=== PATIENT | male | born 1995 | race Caucasian/White ===

== ENCOUNTER 2022-07-28 18:17 | Emergency (ER) | payer MEDICARE, OTHER ==
[~2022-07-28] VITALS: Ht 170.2 cm; Wt 59.1 kg
[2022-07-28] MEDS ORDERED: DiphenhydrAMINE HCL 50 MG/ML VIAL IVP ONE (21:00)
[2022-07-28] MEDS ORDERED: SODIUM CHLORIDE 0.9% 1,000 ML IV ONE (21:00)
[2022-07-28] MEDS ORDERED: METOCLOPRAMIDE HCL 5 MG/ML 2 ML VIAL IVP ONE (21:00)
[2022-07-28 21:09] LABS: BASOPHILS % (AUTO) 0.8 % (0.0-2.0); EOSINOPHILS % (AUTO) 4.4 % (1.0-6.0); HEMATOCRIT 44.2 % (41-53); HEMOGLOBIN 14.8 g/dL (13.5-17.5); LYMPHOCYTES % (AUTO) 31.6 % (22.0-44.0); MEAN CORPUSCULAR HEMOGLOBIN 31.1 pg (26.0-34.0); MEAN CORPUSCULAR HGB CONC 33.4 G/dL (31.0-37.0); MEAN CORPUSCULAR VOLUME 93 fL (80-100); MONOCYTES # (AUTO) 0.7 K/uL (0.1-1.0); MONOCYTES % (AUTO) 7.3 % (2.0-9.0); NEUTROPHILS # (AUTO) 5.2 K/uL (1.8-7.7); NEUTROPHILS % (AUTO) 55.9 % (40.0-70.0); PLATELET COUNT (AUTO) 307 K/uL (150-450); RED BLOOD CELL COUNT(AUTO) 4.75 MIL/uL (4.50-5.90); RED CELL DISTRIBUTION WIDTH 13.1 % (11.5-14.5)
[2022-07-28 21:24] LABS: ANION GAP 9 mmol/L (8-16); CALCIUM, TOTAL 9.3 mg/dL (8.8-10.5); CARBON DIOXIDE 29 mmol/L (22-29); CHLORIDE 100 mmol/L (98-107); CREATININE 0.78 mg/dL (0.60-1.30); GLOMERULAR FILTR. RATE CALC > 60 mL/min (>60); GLUCOSE,RANDOM 99 mg/dL (70-110); POTASSIUM 4.6 mmol/L (3.5-5.1); SODIUM SERUM 138 mmol/L (136-145); UREA NITROGEN, BLOOD 8 mg/dL (7-18)
[2022-07-28 21:30] LABS: ALANINE AMINOTRANSFERASE 64 U/L (12-78); ALBUMIN 4.8 g/dL (3.4-5.0); ALKALINE PHOSPHATASE 61 U/L (46-116); BILIRUBIN,TOTAL 0.8 mg/dL (0.1-1.0); TOTAL PROTEIN, SERUM 8.7 g/dL (6.4-8.2)
[2022-07-28 21:35] LABS: PROTHROMBIN TIME 10.8 SEC (9.4-11.6)
[2022-07-28 21:51] LABS: ASPARTATE AMINOTRANSFERASE 47 U/L (15-37)
[2022-07-28 22:45] LABS: ERYTHROCYTE SEDIMENTATION RATE 4 MM/HR (0-15)
[2022-07-28] MEDS ORDERED: KETOROLAC TROMETHAMINE 30 MG/ML VIAL IVP ONE (23:00)
[2022-07-28 23:30] VITALS: BP 126/72
== END 2022-07-28 23:50 | disposition home or self-care (01) ==
LOC: EMS 18:20
DX: R51.9 Headache, unspecified (principal)
CPT/HCPCS: 99285; 96374; 70450; 96375; 96361; 80053; 83690; 85025; 85610; 85651; 36415; J1200; J1885; J2765; J7030

== ENCOUNTER 2023-11-26 20:51 | Inpatient (IN) | payer MEDICAID, OTHER ==
[~2023-11-26] VITALS: Ht 167.6 cm; Wt 62.6 kg
[~2023-11-26 20:51] MED LIST: SERT-162 PO
[2023-11-26 21:20] VITALS: O2SAT 100
[2023-11-26 21:34] LABS: BASOPHILS % (AUTO) 1.1 % (0.0-2.0); EOSINOPHILS % (AUTO) 4.5 % (1.0-6.0); HEMOGLOBIN 14.6 g/dL (13.5-17.5); LYMPHOCYTES # (AUTO) 2.6 K/uL (1.0-4.8); LYMPHOCYTES % (AUTO) 34.1 % (22.0-44.0); MEAN CORPUSCULAR HEMOGLOBIN 30.8 pg (26.0-34.0); MEAN CORPUSCULAR VOLUME 91 fL (80-100); MONOCYTES # (AUTO) 0.6 K/uL (0.1-1.0); MONOCYTES % (AUTO) 8.7 % (2.0-9.0); NEUTROPHILS # (AUTO) 3.9 K/uL (1.8-7.7); NEUTROPHILS % (AUTO) 51.6 % (40.0-70.0); PLATELET COUNT (AUTO) 364 K/uL (150-450); RED BLOOD CELL COUNT(AUTO) 4.74 MIL/uL (4.50-5.90); RED CELL DISTRIBUTION WIDTH 13.2 % (11.5-14.5); WHITE BLOOD COUNT (AUTO) 7.5 K/uL (4.5-11.0)
[2023-11-26 21:43] LABS: ALCOHOL, BLOOD (SERUM) < 3 mg/dL (0-10)
[2023-11-26 22:10] LABS: ANION GAP 6 mmol/L (8-16); CALCIUM, TOTAL 8.8 mg/dL (8.8-10.5); CARBON DIOXIDE 31 mmol/L (22-29); CHLORIDE 104 mmol/L (98-107); GLOMERULAR FILTR. RATE CALC > 60 mL/min (>60); GLUCOSE,RANDOM 106 mg/dL (70-110); POTASSIUM 4.4 mmol/L (3.5-5.1); SODIUM SERUM 141 mmol/L (136-145); UREA NITROGEN, BLOOD 13 mg/dL (7-18)
[2023-11-26] MEDS ORDERED: QUEtiapine FUMARATE 100 MG TABLET PO PRN (23:45)
[2023-11-26] MEDS ORDERED: ZOLPIDEM TARTRATE 10 MG TABLET PO PRN (23:45)
[2023-11-26 23:59] LABS: COVID AG,FIA SOURCE NASAL SWAB
[2023-11-27] MEDS: LORazepam 2 MG TABLET PO ONE (00:14)
[2023-11-27 00:15] LABS: ALCOHOL, URINE DRUG SCREEN NEGATIVE (NEGATIVE); AMPHET/METH SCREEN,URINE POSITIVE (NEGATIVE); BARBITURATE SCREEN, URINE NEGATIVE (NEGATIVE); BENZODIAZEPINES SCREEN,URINE NEGATIVE (NEGATIVE); CANNABINOID SCREEN,URINE NEGATIVE (NEGATIVE); COCAINE SCREEN,URINE NEGATIVE (NEGATIVE); METHADONE SCREEN, URINE NEGATIVE (NEGATIVE); OPIATE SCREEN,URINE NEGATIVE (NEGATIVE); PHENCYCLIDINE SCREEN,URINE NEGATIVE (NEGATIVE)
[2023-11-27 00:18] LABS: APPEARANCE,URINE CLEAR (CLEAR); BILIRUBIN,URINE NEGATIVE (NEGATIVE); COLOR,URINE YELLOW (YELLOW); GLUCOSE, URINE (UA) NEGATIVE (NEGATIVE); KETONES,URINE NEGATIVE (NEGATIVE); LEUKOCYTE ESTERASE ,URINE NEGATIVE (NEGATIVE); NITRATE,URINE NEGATIVE (NEGATIVE); OCCULT BLOOD,URINE NEGATIVE (NEGATIVE); PROTEIN,URINE TRACE mg/dL (NEGATIVE); SPECIFIC GRAVITIY, URINE 1.029 (1.003-1.030); UROBILINOGEN,URINE <=1.0 mg/dL (<=1.0)
[2023-11-27] MEDS: ACETAMINOPHEN 500 MG TABLET PO ONE (00:23)
[2023-11-27 00:24] LABS: SARS-COV2 (COVID) ANTIGEN,FIA Negative (Negative)
[2023-11-27 02:50] VITALS: BP 105/86; PULSE 77; RESP 17; TEMP 97.8; O2SAT 100
[2023-11-27 09:16] VITALS: BP 115/64; PULSE 70; RESP 16; TEMP 98.2; O2SAT 98
[2023-11-27] MEDS ORDERED: HydrOXYzine PAMOATE 50 MG CAPSULE PO PRN (10:30)
[2023-11-27] MEDS ORDERED: TUBERCULIN, PURIFIED PROTEIN DERIVATIVE 5 TU/0.1 ML SYRINGE ID ONE (10:30)
[2023-11-27] MEDS ORDERED: LOPERAMIDE HCL 2 MG CAPSULE PO PRN ×2 (10:30)
[2023-11-27] MEDS ORDERED: MAGNESIUM HYDROXIDE SUSPENSION 30 ML UDCUP PO PRN (10:30)
[2023-11-27] MEDS ORDERED: GuaiFENesin/D-METHORPHAN [SUGAR-FREE] 200-20MG/10 ML SYRUP UDCUP PO PRN (10:30)
[2023-11-27] MEDS ORDERED: MAG HYDROX/ALUMINUM HYD/SIMETH ES 30 ML SUSPENSION UDCUP PO PRN (10:30)
[2023-11-27] MEDS: THIAMINE 100 MG TABLET PO SCH (17:43)
[2023-11-27] MEDS: MELATONIN 5 MG TABLET PO SCH (21:05)
[2023-11-27 21:06] VITALS: RESP 18
[2023-11-28 08:32] LABS: HEMOGLOBIN A1C 5.2 % (3.8-5.6)
[2023-11-28 09:41] LABS: CHOL/HDL RATIO 2.3 (4.2-7.3); FREE T4 (FREE THYROXINE) 0.85 ng/dL (0.76-1.46); THYROID STIMULATING HORMONE 0.52 uIU/mL (0.36-3.74)
[2023-11-28 09:44] VITALS: BP 92/64; PULSE 64; RESP 19; TEMP 97.6
[2023-11-28] MEDS: MULTIVITAMINS WITH MINERALS, THERAPEUTIC TABLET PO SCH (09:44)
[2023-11-28] MEDS: ACETAMINOPHEN 325 MG TABLET PO PRN (09:44)
[2023-11-28] MEDS: OMEGA-3/DHA/EPA/FISH OIL 1,000 MG CAPSULE PO SCH (09:44)
[2023-11-28] MEDS: FOLIC ACID 1 MG TABLET PO SCH (09:44)
[2023-11-28 09:47] VITALS: BP 88/51; PULSE 60; RESP 18; TEMP 98.4; O2SAT 100
[2023-11-28] MEDS: LORazepam 2 MG TABLET PO PRN (09:57)
[2023-11-28 10:44] VITALS: BP 94/68; PULSE 68; RESP 18; TEMP 97.4
[2023-11-28] MEDS: BuPROPion HCL XL 150 MG ER TABLET PO SCH (10:45)
[2023-11-28] MEDS: NALTREXONE HCL 50 MG TABLET PO SCH (10:45)
[2023-11-28] MEDS: PROMETHAZINE HCL 25 MG TABLET PO PRN (14:17)
[2023-11-28] MEDS ORDERED: NALT50TA33 PO (16:53)
[2023-11-28] MEDS ORDERED: BUPR-514 PO (16:53)
[2023-11-28] MEDS ORDERED: MELA5TAB40 PO (16:53)
[2023-11-28] MEDS ORDERED: OMEG-135 PO (16:53)
[2023-11-28 21:12] VITALS: BP 116/66; PULSE 77; RESP 18; TEMP 98.5; O2SAT 1
[2023-11-29] MEDS: BuPROPion HCL XL 150 MG ER TABLET PO SCH (08:52)
[2023-11-29 10:47] VITALS: BP 104/59; PULSE 64; RESP 18; TEMP 98.4; O2SAT 99
== END 2023-11-29 14:45 | disposition home or self-care (01) | DRG 750 ==
LOC: EMS 20:51 → EDH 11-27 01:43 → UNDOADMIN 11-27 01:43 → 3EI 11-27 02:46
PROVIDERS: ADMIT Psychiatry & Neurology Psychiatry; ATTEND Psychiatry & Neurology Psychiatry
PROC: GZHZZZZ Group Psychotherapy (ICD-10-PCS; principal; 2023-11-28)
PROC: GZ58ZZZ Individual Psychotherapy, Cognitive-Behavioral (ICD-10-PCS; 2023-11-28)
DX: F25.9 Schizoaffective disorder, unspecified (principal); R45.851 Suicidal ideations; F33.2 Major depressive disorder, recurrent severe without psychotic features; F15.90 Other stimulant use, unspecified, uncomplicated; Z20.822 Contact with and (suspected) exposure to COVID-19; F17.200 Nicotine dependence, unspecified, uncomplicated; J45.909 Unspecified asthma, uncomplicated; Z81.8 Family history of other mental and behavioral disorders; Z59.00 Homelessness unspecified
CPT/HCPCS: 80048; 80061; 80307; 81003; 83036; 84439; 84443; 85025; 86592; 99285; G0480

== ENCOUNTER 2024-12-11 07:44 | Inpatient (IN) | payer MEDICAID, OTHER ==
[~2024-12-11] VITALS: Ht 172.7 cm; Wt 71.1 kg
[~2024-12-11 07:44] MED LIST changes: +BUPR-49 PO; +MELA5TAB40 PO; +OMEG100033 PO; -SERT-162 PO; +TRAZ-252 PO
[2024-12-11 08:22] LABS: COVID AG,FIA SOURCE NPH
[2024-12-11 08:38] LABS: PLATELET COUNT (AUTO) 320 K/uL (150-450); RED BLOOD CELL COUNT(AUTO) 4.78 MIL/uL (4.50-5.90); RED CELL DISTRIBUTION WIDTH 13.8 % (11.5-14.5); WHITE BLOOD COUNT (AUTO) 11.8 K/uL (4.5-11.0)
[2024-12-11 08:45] LABS: CALCIUM, TOTAL 8.5 mg/dL (8.8-10.5); CREATININE 1.00 mg/dL (0.60-1.30); GLOMERULAR FILTR. RATE CALC > 60 mL/min (>60); GLUCOSE,RANDOM 104 mg/dL (70-110); SODIUM SERUM 141 mmol/L (136-145); UREA NITROGEN, BLOOD 14 mg/dL (7-18)
[2024-12-11 08:51] LABS: ALCOHOL, BLOOD (SERUM) < 3 mg/dL (0-10)
[2024-12-11 08:53] LABS: TROPONIN I-HIGH SENSITIVITY 7 ng/L (<76)
[2024-12-11 08:55] LABS: SARS-COV2 (COVID) ANTIGEN,FIA Negative (Negative)
[2024-12-11] MEDS: SODIUM CHLORIDE 0.9% 1,000 ML IV ONE (08:56)
[2024-12-11 08:58] LABS: ASPARTATE AMINOTRANSFERASE 20 U/L (15-37); TOTAL PROTEIN, SERUM 7.4 g/dL (6.4-8.2)
[2024-12-11] MEDS ORDERED: ZOLPIDEM TARTRATE 10 MG TABLET PO PRN (10:15)
[2024-12-11 10:27] VITALS: O2SAT 99
[2024-12-11 14:15] VITALS: BP 131/87; PULSE 87; RESP 18; TEMP 97.4; O2SAT 99
[2024-12-11] MEDS ORDERED: NICOTINE POLACRILEX 2 MG LOZENGE PO PRN (17:00)
[2024-12-11 20:43] VITALS: RESP 16
[2024-12-12 08:05] VITALS: BP 129/86; PULSE 90; RESP 19; TEMP 97.7; O2SAT 96
[2024-12-12] MEDS ORDERED: ONDANSETRON 4 MG TABLET PO PRN (10:45)
[2024-12-12] MEDS ORDERED: ACETAMINOPHEN 325 MG TABLET PO PRN (10:45)
[2024-12-12] MEDS ORDERED: GuaiFENesin/D-METHORPHAN [SUGAR-FREE] 200-20MG/10 ML SYRUP UDCUP PO PRN (10:45)
[2024-12-12] MEDS ORDERED: IBUPROFEN 400 MG TABLET PO PRN (10:45)
[2024-12-12] MEDS ORDERED: PETROLATUM,WHITE 28 GM JELLY TP PRN (10:45)
[2024-12-12] MEDS ORDERED: ALBUTEROL SULFATE HFA 90 MCG/PUFF 8 GM INHALER IH PRN (10:45)
[2024-12-12] MEDS ORDERED: MAG HYDROX/ALUMINUM HYD/SIMETH ES 30 ML SUSPENSION UDCUP PO PRN (10:45)
[2024-12-12] MEDS ORDERED: NICOTINE 14 MG/24 HOUR PATCH TD PRN (10:45)
[2024-12-12] MEDS ORDERED: DOCUSATE SODIUM 100 MG CAPSULE PO PRN (10:45)
[2024-12-12] MEDS ORDERED: MAGNESIUM HYDROXIDE SUSPENSION 30 ML UDCUP PO PRN (10:45)
[2024-12-12] MEDS ORDERED: LOPERAMIDE HCL 2 MG CAPSULE PO PRN (10:45)
[2024-12-12 20:07] VITALS: BP 138/87; PULSE 73; RESP 17; TEMP 97.6; O2SAT 98
[2024-12-12] MEDS: MELATONIN 5 MG TABLET PO SCH (20:26)
[2024-12-12] MEDS: PRAZOSIN HCL 1 MG CAPSULE PO SCH (20:26)
[2024-12-13] MEDS: BuPROPion HCL XL 150 MG ER TABLET PO SCH (08:12)
[2024-12-13] MEDS: OMEGA-3/DHA/EPA/FISH OIL 1,000 MG CAPSULE PO SCH (08:12)
[2024-12-13 08:24] VITALS: BP 123/82; PULSE 84; RESP 18; TEMP 97.7; O2SAT 99
[2024-12-13 09:26] LABS: APPEARANCE,URINE CLEAR (CLEAR); GLUCOSE, URINE (UA) NEGATIVE (NEGATIVE); LEUKOCYTE ESTERASE ,URINE NEGATIVE (NEGATIVE); NITRATE,URINE NEGATIVE (NEGATIVE); OCCULT BLOOD,URINE NEGATIVE (NEGATIVE); PH,URINE DRUG SCREEN 7.0 (5.0-8.0); SPECIFIC GRAVITIY, URINE 1.019 (1.003-1.030)
[2024-12-13 09:42] LABS: ALCOHOL, URINE DRUG SCREEN NEGATIVE (NEGATIVE); AMPHET/METH SCREEN,URINE POSITIVE (NEGATIVE); BARBITURATE SCREEN, URINE NEGATIVE (NEGATIVE); CANNABINOID SCREEN,URINE POSITIVE (NEGATIVE); COCAINE SCREEN,URINE NEGATIVE (NEGATIVE); METHADONE SCREEN, URINE NEGATIVE (NEGATIVE)
[2024-12-13 20:00] VITALS: BP 119/82; PULSE 68; RESP 17; TEMP 97.7; O2SAT 98
[2024-12-14 09:50] VITALS: BP 110/94; PULSE 95; RESP 18; TEMP 97.5; O2SAT 98
[2024-12-14 20:14] VITALS: BP 113/73; PULSE 68; RESP 18; TEMP 97.7; O2SAT 97
[2024-12-15 08:06] VITALS: BP 100/64; PULSE 60; RESP 17; TEMP 97.5; O2SAT 97
[2024-12-15] MEDS ORDERED: PRAZ1 PO ×2 (14:44→17:27)
[2024-12-15] MEDS ORDERED: MELA5TAB40 PO (17:27)
== END 2024-12-15 17:18 | disposition home or self-care (01) | DRG 751 ==
LOC: EMS 07:44 → B3A 13:11 → EMS 13:14
PROVIDERS: ADMIT Psychiatry & Neurology Psychiatry; ATTEND Psychiatry & Neurology Psychiatry
PROC: GZ56ZZZ Individual Psychotherapy, Supportive (ICD-10-PCS; 2024-12-12)
PROC: GZ58ZZZ Individual Psychotherapy, Cognitive-Behavioral (ICD-10-PCS; 2024-12-12)
PROC: GZ52ZZZ Individual Psychotherapy, Cognitive (ICD-10-PCS; principal; 2024-12-13)
DX: F33.2 Major depressive disorder, recurrent severe without psychotic features (principal); R45.851 Suicidal ideations; G47.00 Insomnia, unspecified; E78.5 Hyperlipidemia, unspecified; D72.829 Elevated white blood cell count, unspecified; F11.10 Opioid abuse, uncomplicated; F12.10 Cannabis abuse, uncomplicated; F15.10 Other stimulant abuse, uncomplicated; F43.10 Post-traumatic stress disorder, unspecified; F17.210 Nicotine dependence, cigarettes, uncomplicated; F41.9 Anxiety disorder, unspecified; Z20.822 Contact with and (suspected) exposure to COVID-19; Z79.899 Other long term (current) drug therapy
CPT/HCPCS: 80053; 80307; 81003; 83036; 84443; 84484; 85025; 87340; 93005; G0480; J7030